=== PATIENT | male | born 1985 | race Caucasian/White ===

== ENCOUNTER 2020-12-10 01:59 | Inpatient (IN) | payer OTHER ==
[~2020-12-10] VITALS: Ht 190.5 cm; Wt 160.5 kg
[2020-12-10 02:23] LABS: HEMOGLOBIN 12.7 gm/dl (14.0-17.5); RED BLOOD COUNT 4.79 M/UL (4.20-5.50); WHITE BLOOD COUNT 8.9 K/UL (4.5-11.0)
[2020-12-10 02:46] LABS: BUN/CREATININE RATIO 17 (0-10)
[2020-12-11 07:37] LABS: HEMOGLOBIN 12.5 gm/dl (14.0-17.5); RED BLOOD COUNT 4.63 M/UL (4.20-5.50)
[2020-12-11 07:47] LABS: WHITE BLOOD COUNT 11.3 K/UL (4.5-11.0)
[2020-12-11 08:02] LABS: BUN/CREATININE RATIO 21 (0-10)
--- NOTE | 2020-12-11 14:29 | NUR ---
pt coming back from [employer] [facility] noted , no intervention needed, tr band to right wrist reported v/s wnl
[2020-12-11] MEDS ORDERED: METOPROLOL SUCC25 MG PO (15:34)
[2020-12-11] MEDS ORDERED: FARXIGA10 MG PO (15:34)
[2020-12-11] MEDS ORDERED: LASIX40 MG PO (15:34)
--- NOTE | 2020-12-11 21:30 | NUR ---
Called to pt room via primary nurse who stated that patient had some concerns about being discharged with Lifevest this evening. Patient stated he was concerned about being discharged so late and that he would have to spend the night in his 17 [address] because he did not have anyone to come and get him this late. He also voiced concerns about not getting the lifevest and just following up with his regular dr when he gets home to [place]. I reiterated the importance of wearing the lifevest due to his cardiac condition to both he and his SO and he said if we could wait to discharge him in the morning that he would agree to be fitted and to wear it as presribed. I assured them that was not a problem and spoke to the primary nurse regarding having the [employer] rep come in the AM for fitting prior to discharge.
== END 2020-12-12 14:03 | disposition home or self-care (01) | DRG 286 ==
LOC: ER1 01:59 → CDU 08:15 → MED SURG 4 08:15
PROVIDERS: Physician Assistant Medical; ADMIT Internal Medicine
PROC: B24BZZZ Ultrasonography of Heart with Aorta (ICD-10-PCS; principal; 2020-12-10)
PROC: 4A023N7 Measurement of Cardiac Sampling and Pressure, Left Heart, Percutaneous Approach (ICD-10-PCS; 2020-12-11)
PROC: B2111ZZ Fluoroscopy of Multiple Coronary Arteries using Low Osmolar Contrast (ICD-10-PCS; 2020-12-11)
DX: I11.0 Hypertensive heart disease with heart failure (principal); J96.01 Acute respiratory failure with hypoxia; I50.23 Acute on chronic systolic (congestive) heart failure; I47.2 Ventricular tachycardia; Z68.41 Body mass index [BMI] 40.0-44.9, adult; Z20.822 Contact with and (suspected) exposure to COVID-19; F17.210 Nicotine dependence, cigarettes, uncomplicated; I42.0 Dilated cardiomyopathy; Z96.698 Presence of other orthopedic joint implants; D50.9 Iron deficiency anemia, unspecified; I34.0 Nonrheumatic mitral (valve) insufficiency; E66.01 Morbid (severe) obesity due to excess calories; Z87.81 Personal history of (healed) traumatic fracture; Z83.3 Family history of diabetes mellitus; Z80.6 Family history of leukemia; Z86.711 Personal history of pulmonary embolism; Z79.01 Long term (current) use of anticoagulants; Z86.718 Personal history of other venous thrombosis and embolism
CPT/HCPCS: ECHO; 36415; 36600; 71045; 80048; 80053; 82550; 82553; 82803; 83735; 83874; 83880; 84439; 84443; 84484; 85025; 85027; 85379; 93005; 93306; 94664; 96374; 99152; 99153; 99285; C1769; C1887; C1894; J1644; J1940; J2250; J3010; Q9957; Q9967; U0002